=== PATIENT | female | born 1990 | race Two or more races ===

== ENCOUNTER 2024-11-01 11:56 | Emergency (ER) | payer MEDICAID, SELFPAY ==
--- NOTE | 2024-11-01 12:16 | EKG_ITS ---
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
[2024-11-01 12:19] VITALS: BP 105/74; PULSE 95; RESP 20; TEMP 36.6; O2SAT 99; BMI 22.4
--- NOTE | 2024-11-01 12:45 | XR_ITS ---
Examination: PA lateral chest 2 views TECHNIQUE: Upright lateral chest 2 views Exam date and time: November 01, 2024 1355 hours INDICATIONS: Chest pain today FINDINGS: Normal heart size. Lungs are clear. On the lateral view there is a possible 14 mm pulmonary nodule projecting posterior lower chest IMPRESSION: No lobar pneumonia or pulmonary edema Recommend elective CT chest without contrast follow-up to exclude 14 mm pulmonary nodule posterior lower left chest
--- NOTE | 2024-11-01 12:51 | PD.EDRME ---
Rapid Medical Screening Exam E Arrival date/time: 11/01/24 11:56 This is a 34-year-old female that comes in with multiple complaints. Patient complains of chest pain more so on the right side patient states it hurts to take deep breaths. Patient also complains of shortness of breath. Patient states that she has been having abdominal pain on and off and she is being worked up for her with her primary provider for this. This morning patient states she was feeling dizzy lightheaded. patient has a history of thyroid disease I have greeted and performed a focused initial assessment of this patient. Initial appropriate labs ordered at this time. A comprehensive ED assessment and evaluation of the patient and analysis of all test and completion of medical decision making process will be conducted by additional ED provider. Chief Complaint: Chest Pain Time Seen by Provider: 11/01/24 12:03 Vital signs: Vital Signs Temperature 98 F 11/01/24 12:19 Pulse Rate 95 11/01/24 12:19 Respiratory Rate 20 11/01/24 12:19 Blood Pressure 105/74 11/01/24 12:19 Pulse Oximetry (%) 99 11/01/24 12:19 Oxygen Delivery Method Room Air 11/01/24 12:19
[2024-11-01 13:31] LABS: Basophils % (Auto) 0 % (0-2.5); Eosinophils # (Auto) 0.5 Thou/mm3 (0.0-0.5); Eosinophils % (Auto) 5 % (0-10); Hematocrit 33.8 % (36.0-46.0); Hemoglobin 11.1 g/dL (12.0-16.0); Immature Granulocytes % (Auto) 0 % (0-0); Immature Granulocytes Auto 0.03 Thou/mm3 (0.00-0.00); Lymphocytes # (Auto) 1.1 Thou/mm3 (1.0-4.8); Lymphocytes % (Auto) 13 % (10-50); Mean Corpuscular HGB Conc 32.8 g/dl (31.0-37.0); Mean Corpuscular Hemoglobin 25.3 pg (25.0-35.0); Mean Corpuscular Volume 77 fL (80-100); Monocytes # (Auto) 0.6 Thou/mm3 (0.0-0.8); Monocytes % (Auto) 6 % (0-12); Neutrophils # (Auto) 6.7 Thou/mm3 (1.8-7.7); Neutrophils % (Auto) 75 % (37-80); Nucleated Red Blood Cell % 0 /100 WBC (0); Platelet Count 255 Thou/mm3 (140-440); RDW Standard Deviation 50.1 fL (36.4-46.3); Red Blood Count 4.39 Miln/mm3 (4.00-5.20); White Blood Count 8.9 Thou/mm3 (3.6-11.0)
[2024-11-01 13:47] LABS: B-Type Natriuretic Peptide < 20 pg/mL (0-100)
[2024-11-01 13:48] LABS: Collection Type, Urine Voided
[2024-11-01 13:49] LABS: Alanine Aminotransferase 22 U/L (10-49); Albumin, Serum 4.8 gm/dL (3.5-5.0); Albumin/Globulin Ratio 1.7 (1.2-2.2); Alkaline Phosphatase 108 U/L (46-116); Anion Gap 7 (7-16); Aspartate Amino Transferase 23 U/L (0-34); BUN/Creatinine Ratio 12 Ratio (12-20); Bilirubin,Total 0.4 mg/dL (0.3-1.2); Blood Urea Nitrogen 7 mg/dL (9-23); Calcium 9.4 mg/dL (8.3-10.6); Calcium (Corrected) 9.4 mg/dL (8.5-10.1); Carbon Dioxide 23.9 mMol/L (20.0-31.0); Chloride 103 mMol/L (98-107); Creatinine (Component) 0.6 mg/dL (0.6-1.3); Estimated Creatinine Clearance 133.3 mL/min (>60); Globulin 2.9 gm/dL (2.3-3.5); Glucose 88 mg/dL (74-106); Lipase 54 U/L (12-53); Osmolality,Calculated 265 (275-295); Potassium 3.8 mMol/L (3.4-5.1); Sodium 134 mMol/L (136-145); Total Protein 7.7 gm/dL (5.7-8.2); Troponin I < 0.002 ng/mL (0.0-0.045); eGFR > 60 See Note
[2024-11-01 13:53] LABS: HCG,Qualitative Serum Negative
[2024-11-01 14:12] LABS: Bacteria,Urine Rare; Bilirubin,Urine Negative (Negative); Blood,Urine Negative (Negative); Clarity,Urine Clear (Clear/Hazy); Color,Urine Yellow (Lt Yel-Yel); Culture Indicated,Urine Not Indicated; Glucose, Urine Negative (Negative); Hyaline Casts,Urine < 1 /hpf (0-1); Ketones,Urine 1+ (Negative); Leukocyte Esterase,Urine Positive (Negative); Nitrite,Urine Negative (Negative); Protein,Urine Negative (Neg - Trace); RBC,Urine 8 /hpf (0-3); Specific Gravity,Urine 1.028 (1.001-1.035); Squamous Epithelial Cell,Urine 3 /hpf (0-5); Urobilinogen,Urine Negative mg/dL (0.0-1.0); WBC,Urine 1 /hpf (0-5)
[2024-11-01 15:29] VITALS: BP 105/68; PULSE 97; RESP 18; TEMP 36.8; O2SAT 98
--- NOTE | 2024-11-01 17:30 | EDNOTE_ITS ---
<Statement entered by Amanda Teresa MD - 11/02/24 09:00> As co-signing physician, I was present and available for consult prn. I concur with the plan and care as documented by the midlevel provider. ED General RME/HPI General Chief complaint: Chest Pain Stated complaint: CHEST PAIN, SOB, HEADACHE Time Seen by Provider: 11/01/24 12:03 Arrival date/time: 11/01/24 11:56 CC: The right-sided chest wall pain worsening with deep inhalation and mild cough denies fever chills shortness of breath also epigastric pain. Patient was just seen by PCP put on promethazine for cough, and omeprazole for stomach pain. Patient is awake alert oriented very anxious not in any acute distress denies fever chills shortness of breath or difficulty breathing at this time. RME / HPI RME / HPI narrative: 11/01/24 11:56 This is a 34-year-old female that comes in with multiple complaints. Patient complains of chest pain more so on the right side patient states it hurts to take deep breaths. Patient also complains of shortness of breath. Patient states that she has been having abdominal pain on and off and she is being worked up for her with her primary provider for this. This morning patient states she was feeling dizzy lightheaded. patient has a history of thyroid disease I have greeted and performed a focused initial assessment of this patient. Initial appropriate labs ordered at this time. A comprehensive ED assessment and evaluation of the patient and analysis of all test and completion of medical decision making process will be conducted by additional ED provider. Related Data Previous Rx's ?Medication ?Instructions ?Recorded cyclobenzaprine 10 mg tablet 10 mg PO TID #14 tabs Allergies Allergy/AdvReac Type Severity Reaction Status Date / Time amoxicillin (From Augmentin) Allergy Intermediate Rash Verified 11/01/24 12:01 clavulanic acid (From Allergy Intermediate Rash Verified 11/01/24 12:01 Augmentin) Review of Systems Review of Systems Narrative Review of Systems: GEN: No fever, no chills, no weight loss EYES: No discharge, no visual changes, no pain HEENT: No ear pain, no congestion, no sore throat PULM: No shortness of breath, no cough, no congestion CV: No chest pain, no dyspnea on exertion, no palpitations GI: No nausea, no vomiting, no diarrhea, no pain, no constipation : No frequency, no urgency, no dysuria MUSC/SKEL: No joint pain, no back pain SKIN: No rash PSYCH: No hallucinations, no depression HEME/LYMPH: No easy bleeding or bruising tendencies NEURO: No weakness, no headache Past Medical History Social History SMOKING STATUS: Never smoker ED Exam Narrative Physical exam: [General: Anxious but not in any acute distress Head normocephalic HEENT: Within acceptable limits Neck is supple nontender Chest equal chest rise nontender to palpation, describes pain full inhalation but no pain with palpation. Respiratory: Clear to auscultation no wheezes crackles or rubs CV: Rate rhythm is regular no murmurs rubs or clicks Abdomen is distended secondary to body habitus soft nontender no masses positive bowel sounds all 4 quadrants Back: No CVA tenderness no spinous process tenderness from cervical spine thoracic and lumbar spine Skin: Intact no petechiae rash induration ulceration or crepitus Extremities: Moving all extremity against resistance cap refill less than 2 seconds neurosensory intact Neuro: Awake alert oriented x3 Glascow coma 15 no focal deficits] Course Course Course Narrative: After lengthy discussion with the patient I suspect this is mostly musculoskeletal in nature, patient will be started on cyclobenzaprine to see if this helps otherwise patient is advised to continue with ibuprofen and Tylenol. Quality Measures none Orders Category Date Time Status EKG (ED ONLY) *Do not use* NOW Care 11/01/24 12:16 Completed EKG (ED Only) Stat Exams 11/01/24 12:16 Draft XR chest 2V Stat Exams 11/01/24 12:45 Completed BNP [B-Type Natriuretic Peptide] Stat Lab 11/01/24 13:15 Completed CBC Stat Lab 11/01/24 13:15 Completed Comprehensive Metabolic Panel Stat Lab 11/01/24 13:15 Completed HCG,Qualitative Serum Stat Lab 11/01/24 13:15 Completed Lipase Stat Lab 11/01/24 13:15 Completed Troponin I Stat Lab 11/01/24 13:15 Completed Urinalysis, C/S if Indicated Stat Lab 11/01/24 13:33 Completed Vital Signs Vital signs: Vital Signs Temperature 98 F 11/01/24 12:19 Pulse Rate 95 11/01/24 12:19 Respiratory Rate 20 11/01/24 12:19 Blood Pressure 105/74 11/01/24 12:19 Pulse Oximetry (%) 99 11/01/24 12:19 Oxygen Delivery Method Room Air 11/01/24 12:19 Discharge Plan Plan Patient Disposition: HOME (Self Care) Patient condition on transfer: Stable Prescriptions/Referrals Prescriptions/Med Rec: New cyclobenzaprine 10 mg tablet 10 mg PO TID Qty: 14 0RF Referrals: Hitesh Palmer MD [Physician] - In 1 week No Primary/Family,Physician [Primary Care Provider] - In 1 week Problem List Clinical Impression: Chest wall pain, Epigastric pain Patient/Caregiver Discharge Instructions Education Materials: ED Chest Pain, Uncertain Cause Additional Instructions: Continue take the medications from the PCP as well as she is given if there is worsening of symptoms return the emergency room medially for further evaluation. Print Language: Bengali Stand Alone Forms: Tona Award Info., Patient Portal Info Letter, Work/School Release PA/HEALTHCARE REPRESENTATIVE Supervising Physician PA/HEALTHCARE REPRESENTATIVE Supervising Physician: Cruz read Enp [facility] Clinical Information Provided by: patient and spouse Medical Records reviewed [facility] Meds/Rx considered, not ordered None Labs/Rad/Tests considered, not ordered None Chronic Illness/Social Conditions which may negatively complicate care or outcome(s)-explain: None or not applicable EKG Interpretation EKG #1: EKG Interpretation: EKG performed at 1221 shows a ventricular rate of 90 CT interval 147 QRS of 82 QTc of 375 there is normal sinus rhythm right axis deviation. Labs Labs: Interpreted by me Lab(s) Interpretation(s): CBC shows no acute leukocytosis and mild anemia 11.1 and 33.3 with platelets of 255 CMP shows sodium 134 no other electrolyte imbalances renal impairment transaminitis or T. bili elevation Troponin is negative BNP is negative Lipase is 54 Urine is negative urine ketones at 1+. No signs of UTI. Imaging Imaging interpretation: Personal Interpretations Imaging Interpretation(s): Chest x-ray as interpreted by me read by radiology as negative.
== END 2024-11-01 17:52 | disposition home or self-care (01) ==
PROVIDERS: Nurse Practitioner Family; Emergency Provider Emergency Medicine
DX: R07.1 Chest pain on breathing (principal); R10.13 Epigastric pain
CPT/HCPCS: 36415; 71046; 80053; 81001; 83690; 83880; 84484; 84703; 85025; 93005; 99283

== ENCOUNTER 2024-11-04 23:53 | Emergency (ER) | payer MEDICAID, SELFPAY ==
[2024-11-05 01:16] VITALS: BP 111/69; PULSE 112; RESP 17; TEMP 37.5; O2SAT 98
[2024-11-05] MEDS: NAPROXEN 250 MG TABLET 500 MG PO (01:45)
[2024-11-05] MEDS: DEXAMETHASONE SOD PHOS INJ 10 MG/ML VIAL PO (01:45)
[2024-11-05 03:54] VITALS: BP 100/62; PULSE 94; RESP 18; TEMP 37; O2SAT 98
--- NOTE | 2024-11-05 04:43 | PD.EDALLER ---
ED Allergic Reaction RME/HPI General Chief complaint: Allergic Reaction Stated complaint: RASH TO WHOLE BODY Time Seen by Provider: 11/05/24 01:35 Arrival date/time: 11/04/24 23:53 34F with no significant PMH presents to ED with 1 day of generalized itchy rash after taking omeprazole for the first time. Patient denies SOB and throat swelling. Separately, patient has had 1 week of cough. Patient was here several days ago with cough complaint with normal CXR and lab work. Limitations: no limitations Related Data Previous Rx's ?Medication ?Instructions ?Recorded cyclobenzaprine 10 mg tablet 10 mg PO TID #14 tabs 11/01/24 prednisone 20 mg tablet 20 mg PO QDAY 5 days #5 tabs 11/05/24 Allergies Allergy/AdvReac Type Severity Reaction Status Date / Time amoxicillin (From Augmentin) Allergy Intermediate Rash Verified 11/04/24 23:55 clavulanic acid (From Allergy Intermediate Rash Verified 11/04/24 23:55 Augmentin) Review of Systems Review of Systems Systems Reviewed: All systems reviewed, normal except as documented Constitutional Constitutional: Reports system reviewed and no additional complaints, except as documented, Denies fever(s) and Denies headache(s) ENT Ears, Nose, Mouth, and Throat: Denies disequilibrium and Denies headache(s) Cardiovascular Cardiovascular: Reports system reviewed and no additional complaints, except as documented, Denies chest pain and Denies dyspnea Respiratory Respiratory: Reports system reviewed and no additional complaints, except as documented, Reports as per HPI, Reports cough and Denies dyspnea Gastrointestinal Gastrointestinal: Reports system reviewed and no additional complaints, except as documented, Denies abdominal pain, Denies nausea and Denies vomiting Integumentary/Breasts Skin/Breast: Reports as per HPI, Reports pruritus and Reports rash Neurologic Neurologic: Reports system reviewed and no additional complaints, except as documented, Denies confusion, Denies disequilibrium and Denies headache(s) Psychiatric Psychiatric: Denies confusion Past Medical History Past Medical History CARDIAC: Negative Congestive Heart Failure RESPIRATORY: Negative Chronic Obstructive Pulmonary Disease (COPD) GENITOURINARY: Negative Renal Disease ENDOCRINE: Negative Diabetes Mellitus Type 1 or Diabetes Mellitus Type 2 Social History SMOKING STATUS: Never smoker ED Exam General Limitations: Present no limitations General appearance: Present alert and in no apparent distress Head Head exam: Present atraumatic Eye Eye exam: Present normal appearance, PERRL and EOMI ENT ENT exam: Present normal exam, normal oropharynx and mucous membranes moist Neck Neck exam: Present normal inspection, full ROM and trachea midline Chest Chest inspection: Present normal inspection and symmetric chest wall rise Respiratory Respiratory exam: Present normal lung sounds bilaterally Cardiovascular Cardiovascular exam: Present regular rate, normal rhythm and normal heart sounds Abdominal Exam Abdominal exam: Present soft and normal bowel sounds Extremities Exam Extremities exam: Present normal inspection and full ROM Back Exam Back exam: Present normal inspection and full ROM Neurological Exam Neurological exam: Present alert, oriented X3 and CN II-XII intact Psychiatric Psychiatric exam: Present normal affect and normal mood Skin Skin exam: Present warm, dry, intact, normal color and rash Course Quality Measures none Orders Category Date Time Status Dexamethasone Inj [Decadron Inj] Med 11/05/24 01:35 Discontinued 10 mg PO X1 ONE Naproxen [Naprosyn] Med 11/05/24 01:35 Discontinued 500 mg PO X1 ONE Vital Signs Vital signs: Vital Signs Temperature 99.5 F 11/05/24 01:16 Pulse Rate 112 H 11/05/24 01:16 Respiratory Rate 17 11/05/24 01:16 Blood Pressure 111/69 11/05/24 01:16 Pulse Oximetry (%) 98 11/05/24 01:16 Oxygen Delivery Method Room Air 11/05/24 01:16 O2 at 98% on RA and WNLs Allergic Reaction MDM Narrative MDM Narrative:: 34F with no significant PMH presents to ED with 1 day of generalized itchy rash after taking omeprazole for the first time. Patient denies SOB and throat swelling. Separately, patient has had 1 week of cough. Patient was here several days ago with cough complaint with normal CXR and lab work. Physical exam reveals clear lungs. Normal oropharynx. Normal WOB. Generalized urticarial rash. Patient is afebrile, calm, and alert. Steroids improved rash and cough, which is likely a viral URI. Patient data External records reviewed:: [facility] previous records Clinical information provided by:: patient Social determinants that could affect healthcare access:: none Patient has the following chronic illnesses:: none How is presenting disease/condition affected by chronic disease/condition?: no chronic disease Evaluation data The following diagnostics were reviewed and interpreted by me:: other (specify) (none) Lab and/or radiology exams considered but not ordered:: not ordered Interpretation Summary: n/a Medications / Prescriptions Medications or Prescriptions considered but not ordered:: ordered Medication administrations:: Medication Administration History Discontinued Medications Dexamethasone Sodium Phosphate (Dexamethasone Sod Phos Inj 10 Mg/Ml Vial) 10 mg PO X1 ONE Stop: 11/05/24 01:36 Last Admin: 11/05/24 01:45 Dose: 10 mg Documented By: CVL Naproxen (Naproxen 250 Mg Tablet) 500 mg PO X1 ONE Stop: 11/05/24 01:36 Last Admin: 11/05/24 01:45 Dose: 500 mg Documented By: CVL above Consultations Consultation(s) initiated? (list below): No Diagnosis Differential Diagnosis allergic reaction: anaphylaxis, allergic reaction, angioedema, contact dermatitis, adverse reaction to drug, viral enanthem, urticaria and other (URI) Most likely diagnosis given after review of the tests above:: URI and rash Admission Indicated Admission indicated?: not indicated Admission Request Was there a request for admission?: No Disposition Plan Disposition Plan: Discharge Discharge Attestation Discharge Attestation: The patient and all family members were given an opportunity to ask questions and understood the discharge instructions. Discharge instructions specifically effects, indications for sooner follow up or return to the emergency department, and the expected course of current diagnosis. Patient condition: Stable Discharge Plan Plan Patient Disposition: HOME (Self Care) Discharge Disposition comment: Stable Prescriptions/Referrals Prescriptions/Med Rec: New prednisone 20 mg tablet 20 mg PO QDAY 5 Days Qty: 5 0RF No Action cyclobenzaprine 10 mg tablet 10 mg PO TID Qty: 14 0RF Referrals: Randee Weldon PA-C [Primary Care Provider] - In 1 week Problem List Clinical Impression: URI (upper respiratory infection), Rash Patient/Caregiver Discharge Instructions Education Materials: ED URI, Viral, No Abx (Adult) Additional Instructions: Please follow-up with PCP within 24-48 hours and return immediately if symptoms worsen. Ibuprofen/Tylenol can be used simultaneously for greater fever/pain control. Print Language: Malian Stand Alone Forms: Patient Portal Info Letter ADRIÁN/RIVERA Supervising Physician ANGELLA Supervising Physician: Dr. Arthur
== END 2024-11-05 04:01 | disposition home or self-care (01) ==
PROVIDERS: Emergency Provider Emergency Medicine; PCP Physician Assistant
DX: J06.9 Acute upper respiratory infection, unspecified (principal); R21 Rash and other nonspecific skin eruption
CPT/HCPCS: 99282; J1100; A9270

== ENCOUNTER → 2024-12-01 | Outpatient (CLI) | payer MEDICAID, SELFPAY ==
[2024-12-01 14:07] LABS: HCG Qualitative,Urine Negative
--- NOTE | 2024-12-01 14:30 | XR_ITS ---
Examination: CT chest, without intravenous contrast. Sagittal and coronal 2-D reconstructions. Exam date and time: December 01, 2024 1424 hours INDICATIONS: 14 mm pulmonary nodule lower chest on chest PA lateral study November 01, 2024 CTDI:vol (mGy) 6.23 DLP: (mGycm) 231 Technique: Multiple 3.0 mm axial sections of the chest to been obtained. Bone and lung density settings are obtained. Sagittal and coronal 2-D reconstructions have been obtained. Low dose protocols were performed. One or more of the following dose reduction techniques were used; automated exposure control, adjustment of the mA and/or KV according to patient size, use of iterative reconstruction technique. Findings: No thoracic aortic aneurysm dilatation Pulmonary artery segments are not enlarged No paratracheal tracheobronchial or bronchopulmonary adenopathy 2 mm pulmonary nodule right upper lobe image 119 2 mm pulmonary nodule right upper lobe image 131 3 mm pulmonary nodule left lower lobe image 184 5 mm pulmonary nodule left lower lobe image 190 3 mm pulmonary nodule pleural-based right middle lobe image 212 12 mm pulmonary nodule right lower lobe image 252 Mild splenomegaly Absent gallbladder IMPRESSION: Multiple pulmonary nodules as above, recommend 3-6 month follow-up CT chest without contrast
== END | disposition home or self-care (01) ==
PROVIDERS: PCP Physician Assistant; Referring Provider Physician Assistant; Visit Provider Physician Assistant
DX: R91.8 Other nonspecific abnormal finding of lung field (principal); Z32.00 Encounter for pregnancy test, result unknown; R16.1 Splenomegaly, not elsewhere classified
CPT/HCPCS: 71250; 81025

== ENCOUNTER → 2025-03-08 | Outpatient (CLI) | payer MEDICAID, SELFPAY ==
--- NOTE | 2025-03-08 10:00 | XR_ITS ---
Examination: CT chest, without intravenous contrast. Sagittal and coronal 2-D reconstructions. Exam date and time: March 08, 2025, 11:00 AM comparison December 01, 2024 INDICATIONS: Smoking history coughing shortness of breath 3 months CTDI:vol (mGy) 7.50 DLP: (mGycm) 274 Technique: Multiple 3.0 mm axial sections of the chest to been obtained. Bone and lung density settings are obtained. Sagittal and coronal 2-D reconstructions have been obtained. Low dose protocols were performed. One or more of the following dose reduction techniques were used; automated exposure control, adjustment of the mA and/or KV according to patient size, use of iterative reconstruction technique. Findings: No thoracic aortic aneurysm dilatation Pulmonary artery segments are not enlarged. Smaller pulmonary nodule in the right lower lobe on the current study, 7 mm compared to 12 mm on the prior exam No new pulmonary nodules No focal liver or splenic lesions, mild splenomegaly Absent gallbladder IMPRESSION: No new pulmonary nodules, however given that the last CT examination was only 3 months ago, suggest 6 month follow-up CT chest without contrast
[2025-03-08 10:59] LABS: HCG Qualitative,Urine Negative
== END | disposition home or self-care (01) ==
LOC: CCTX 10:07
PROVIDERS: PCP Physician Assistant; Referring Provider Internal Medicine Critical Care Medicine; Visit Provider Internal Medicine Critical Care Medicine
DX: R91.8 Other nonspecific abnormal finding of lung field (principal); F17.210 Nicotine dependence, cigarettes, uncomplicated; Z32.00 Encounter for pregnancy test, result unknown
CPT/HCPCS: 71250; 81025